=== PATIENT | male | born 1975 | race Caucasian/White ===

== ENCOUNTER 2018-10-18 07:10 | Day surgery (SDC) | payer BC ==
[~2018-10-18 07:10] MED LIST: Lactated Ringers 1,000 ML IV SCH
--- NOTE | 2018-10-18 07:40 | PCM.PREANE ---
Preanesthetic Assessment - Anesthesia/Transfusion/Family Hx Anesthesia History: Prior Anesthesia Without Reaction Family History of Anesthesia Reaction: No Transfusion History: No Prior Transfusion(s) Intubation History: Unknown - Review of Systems General: No Symptoms Pulmonary: No Symptoms Cardiovascular: No Symptoms Gastrointestinal: Constipation, Diarrhea Neurological: No Symptoms Other: Reports: None - Physical Assessment Height: 1.91 m Weight: 142.882 kg ASA Class: 2 Mental Status: Alert & Oriented x3 Airway Class: Mallampati = 2 Dentition: Reports: Normal Dentition (grinded edges on front teeth) Thyro-Mental Finger Breadths: 3 Mouth Opening Finger Breadths: 3 ROM/Head Extension: Full Lungs: Clear to Auscultation, Normal Respiratory Effort Cardiovascular: Regular Rate, Regular Rhythm - Allergies Allergies/Adverse Reactions: Allergies Allergy/AdvReac Type Severity Reaction Status Date / Time No Known Allergies Allergy Verified 10/11/18 10:36 - Blood Blood Available: No - Anesthesia Plan Pre-Op Medication Ordered: None - Acknowledgements Anesthesia Type Planned: MAC Pt an Appropriate Candidate for the Planned Anesthesia: Yes Alternatives and Risks of Anesthesia Discussed w Pt/Guardian: Yes Pt/Guardian Understands and Agrees with Anesthesia Plan: Yes PreAnesthesia Questionnaire HEENT History: Reports: Hard of Hearing, Other (See Below) Other HEENT History: wears glasses Respiratory History: Reports: Other (See Below) Other Respiratory History: is scheduled for a sleep study Gastrointestinal History: Reports: Chronic Constipation, Chronic Diarrhea Musculoskeletal History: Reports: Other (See Below) Other Musculoskeletal History: states "chronic body aches" Neurological History: Reports: Concussion Endocrine/Metabolic History: Reports: Obesity/BMI 30+ (BMI 39.4) - Past Surgical History GI Surgical History: Reports: Cholecystectomy - SUBSTANCE USE Smoking Status *Q: Never Smoker Recreational Drug Use History: Yes Recreational Drug Type: Reports: Marijuana/Hashish - HOME MEDS Home Medications: Home Meds Meloxicam 15 mg PO BID 10/11/18 [History] - CURRENT (IN HOUSE) MEDS Current Meds: Current Medications Lactated Ringer's (Ringers, Lactated) 1,000 mls @ 125 mls/hr IV ASDIRECTED [facility]
[2018-10-18] MEDS ORDERED: Midazolam 1 MG/ML 2 ML SDV ONE (08:53)
[2018-10-18] MEDS ORDERED: Propofol 200 MG/20 ML SDV ONE ×2 (08:53→09:35)
[2018-10-18] MEDS ORDERED: fentaNYL 100 MCG/2 ML SDV ONE (08:55)
[2018-10-18] MEDS ORDERED: Glycopyrrolate 0.2 MG/ML SDV ONE (09:29)
--- NOTE | 2018-10-18 09:57 | PCM.OPNOTE ---
- General Post-Op/Procedure Note Date of Surgery/Procedure: 10/18/18 Operative Procedure(s): Colonoscopy with sigmoid biopsy Pre Op Diagnosis: Change in bowel habits Post-Op Diagnosis: Nonspecific sigmoid colitis Anesthesia Technique: MAC (ASA II) Primary Surgeon: Michael Shell Condition: Good Free Text/Narrative:: DICTATION [id number] CPT CODE 59288
[2018-10-18] MEDS ORDERED: Lactated Ringers 1,000 ML IV SCH (10:00)
--- NOTE | 2018-10-18 12:19 | OR ---
SURGEON: Michael Shell M.D. DATE OF PROCEDURE: 10/18/2018 OPERATION PERFORMED: Colonoscopy with sigmoid colon biopsy. ANESTHESIA: MAC. ASA CLASSIFICATION: II PREOPERATIVE DIAGNOSIS: Change in bowel habits. POSTOPERATIVE DIAGNOSIS: Nonspecific colitis in the sigmoid. DESCRIPTION OF PROCEDURE: The patient was taken to the endoscopy room and positioned on the endoscopy table in the left lateral decubitus position. Time-out was called for appropriate identification of the patient and procedure. Monitored anesthesia care was provided. The colonoscope was inserted into the rectum and advanced with minimal difficulty to the cecum. Cecum was identified by internal landmarks and external pressure. The colonoscope was retroflexed to visualize the ascending colon from below, then straightened and slowly withdrawn. The cecum, ascending colon, hepatic flexure, transverse colon, splenic flexure, and descending colon showed no tumors, polyps, diverticula, or angiodysplasia. There was no evidence of inflammatory bowel disease. The colonoscope was withdrawn into the sigmoid colon. There was one small area that was mildly erythematous. Biopsies of this area were obtained. This did not appear to be a polyp. No ulcers were noted. No sigmoid diverticula were encountered. The colonoscope was withdrawn to the rectum and retroflexed to visualize the anal orifice from above. Again, no tumors or polyps were seen and there were no acute hemorrhoidal changes. The colonoscope was then straightened, the rectum aspirated, and the colonoscope removed. The patient tolerated the procedure well and was taken to recovery room in stable condition. KAL PATEL /[id number]
== END 2018-10-18 10:48 | disposition home or self-care (01) ==
LOC: MW.SDS 07:10
PROVIDERS: ATTEND Surgery
DX: R19.4 Change in bowel habit (principal); K63.89 Other specified diseases of intestine; Z68.39 Body mass index [BMI] 39.0-39.9, adult; E66.9 Obesity, unspecified
CPT/HCPCS: 45380; J2001; J2250; J2704; J3010; J3490; J7120; 88305